=== PATIENT | male | born 1960 ===

== ENCOUNTER 2016-11-07 09:03 | Day surgery (SDC) | payer MEDICAID ==
[2016-11-02 08:08] VITALS: BMI 27.4
--- NOTE | 2016-11-07 11:35 | PCM.SURG1 ---
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 Post-Operative Diagnosis: Right neck mass Operation Performed: US guided core biopy of right neck mass. Specimen/Specimens Removed: 20 g core x 4 Estimated Blood Loss: EBL {In ML}: 0 Blood Products Given: N/A Drains Used: No Drains Post-Op Condition: Good Date of Surgery/Procedure: 11/07/16 Time of Surgery/Procedure: 11:30
--- NOTE | 2016-11-07 11:38 | CP.SDSHP ---
Same Day Surgery H & P - History Proposed Procedure: US guided biospy right neck mass Pre-Op Diagnosis: Right neck mass - Allergies Allergies: Allergies No Known Allergies Allergy (Verified 11/02/16 08:07) - Physical Exam Vital Signs: Vital Signs 11/07/16 09:14 Temperature 97.8 F Pulse Rate 83 Respiratory 20 Rate Blood Pressure 136/86 O2 Sat by Pulse 96 Oximetry Mental Status: Alert & Oriented x3 Neuro: WNL Heart: WNL Lungs: WNL - Impression Impression: Pt with a large right neck mass referred for biopsy. Plan US guided core biopsy. Informed consent obtained via the director of agronomy phone. Pt. Evaluated Today:Candidate for Anesthesia & Procedure: No - Date & Time Date: 11/07/16 Time: 11:00 Short Stay Discharge - Short Stay Discharge Admitting Diagnosis/Reason for Visit: PAROTID MASS Disposition: HOME/ ROUTINE
--- NOTE | 2016-11-07 13:28 | US ---
PROCEDURE: Date of procedure: 11/07/2016 Procedure: Ultrasound-guided biopsy of RIGHT mass, CPT 39247 Ultrasound guidance for biopsy, [address] HISTORY: Enlarged right neck mass. TECHNIQUE: Following informed consent and procedure time-out, limited ultrasound patient's Right neck demonstrates a large hypoechoic mass in the submandibular region measuring 5.36 x 2.9 centimeters. After the patient neck was prepped and draped in the usual sterile fashion and the skin anesthetized with lidocaine, ultrasound guided core biopsy was performed. A 20 gauge core needle was advanced under ultrasound guidance into the mass. Upon confirmation of needle position, 4x 20 gauge specimens were obtained and sent for routine histology . A post biopsy ultrasound showed no hematoma IMPRESSION: Ultrasound-guided core biopsy of large right neck mass.
[2016-11-07 14:42] VITALS: BP 128/66; PULSE 74; RESP 20; TEMP 97.8; O2SAT 99
== END 2016-11-07 12:15 | disposition home or self-care (01) ==
LOC: C.SPRAD 09:03
PROVIDERS: ATTEND Radiology Vascular & Interventional Radiology
DX: R22.1 Localized swelling, mass and lump, neck (principal)